=== PATIENT | female | born 1980 | race Caucasian/White ===

== ENCOUNTER 2020-12-05 23:14 | Emergency (ER) | payer SELFPAY ==
[~2020-12-05 23:14] MED LIST: LIDOCAINE PATCH REMOVAL MC SCH
[2020-12-05 23:41] VITALS: BP 132/80; PULSE 88; TEMP 98.2; BMI 46.0
[2020-12-05] MEDS ORDERED: oxyCODONE HCL 5 MG TABLET PO ONE (23:55)
[2020-12-05] MEDS ORDERED: LIDOCAINE 5% TOPICAL PATCH TP ONE (23:56)
[2020-12-05] MEDS ORDERED: valACYclovir HCL 1000 MG TABLET PO ONE (23:56)
[2020-12-05] MEDS ORDERED: predniSONE 10 MG TABLET (UD) PO ONE (23:57)
[2020-12-06] MEDS ORDERED: predniSONE 20 MG TABLET (UD) ONE (00:04)
[2020-12-06] MEDS ORDERED: predniSONE 10 MG TABLET (UD) ONE (00:05)
[2020-12-06] MEDS ORDERED: valACYclovir HCL 500 MG TABLET (FP) ONE (00:05)
[2020-12-06] MEDS ORDERED: oxyCODONE HCL 5 MG TABLET ONE (00:05)
[2020-12-06] MEDS ORDERED: DEXAMETHASONE 4 MG TABLET (FP) PO ONE (00:07)
[2020-12-06] MEDS ORDERED: DEXAMETHASONE SOD PHOSPHATE 10 MG/1 ML VIAL ONE (00:09)
[2020-12-06] MEDS ORDERED: DEXAMETHASONE SOD PHOSPHATE 10 MG/1 ML VIAL IM ONE (00:09)
== END 2020-12-06 00:24 | disposition home or self-care (01) ==
LOC: JER 23:14
PROC: 3E023GC Introduction of Other Therapeutic Substance into Muscle, Percutaneous Approach (ICD-10-PCS; principal; 2020-12-05)
DX: B02.8 Zoster with other complications (principal)
CPT/HCPCS: 99284-25; J1100